=== PATIENT | male | born 1965 | race Caucasian/White ===

== ENCOUNTER 2019-07-28 10:24 | Day surgery (SDC) | payer OTHER ==
[2019-07-27 10:49] VITALS: BMI 33.9
[~2019-07-28 10:24] MED LIST: Bupivacaine HCl 0.5%/Epinephrine 1:200,000/PF 30 ml Vial ONE; Dexamethasone 20 MG/5 ML VIAL ONE; EPHEDRINE 25 MG/5 ML SYRINGE ONE; Lidocaine 1% PF 5 ML VIAL ONE; Ondansetron PF 4 MG/2 ML Vial ONE; PROPOFOL 200 MG/20 ML VIAL ONE
[2019-07-28 11:06] LABS: #Basophils 0.1 thou/uL (0.0-0.2); #Eosinphils 0.2 thou/uL (0.0-0.7); #Lymphocytes 1.8 thou/uL (1.20-3.40); #Monocytes 0.8 thou/uL (0.11-0.59); #Neutrophils 5.2 thou/uL (1.40-6.50); %Eosinophils 2.6 % (0.0-10.0); %Lymphocytes 22.3 % (21.0-51.0); %Monocytes 10.1 % (0.0-10.0); Hemoglobin 15.3 g/dL (14.0-18.0); Mean Corpuscular HGB CONC 32.5 g/dL (32.0-36.0); Mean Corpuscular Hemoglobin 28.2 pg (27.0-31.0); Mean Corpuscular Volume 86.8 fL (78.0-98.0); Mean Platelet Volume 9.2 fL (7.4-10.4); Platelet Count 323 thou/uL (130-400); RBC Distribution Width 12.6 % (11.5-14.5); Red Blood Cell (RBC) Count 5.43 mill/uL (4.70-6.10); White Blood Cell (WBC) Count 8.2 thou/uL (4.8-10.8)
[2019-07-28] MEDS ORDERED: Fentanyl 100 MCG/2 ML VIAL ONE ×2 (12:25→13:36)
[2019-07-28] MEDS ORDERED: Dexamethasone 4 mg/ml Vial ONE (12:25)
[2019-07-28] MEDS ORDERED: Midazolam HCl 2 mg/2 ml Vial ONE (12:25)
[2019-07-28 12:41] LABS: Anion Gap 14 mmol/L (10-20); BUN (Urea Nitrogen) 14 mg/dL (8.4-25.7); Calc. Creatinine Clearance 169 mL/min (70-130); Calcium 9.6 mg/dL (7.8-10.44); Carbon Dioxide 20 mmol/L (22-29); Chloride 107 mmol/L (98-107); Estimated GFR-MDRD Greater than 90; Glucose 95 mg/dL (70-105); Potassium 5.6 mmol/L (3.5-5.1); Sodium 135 mmol/L (136-145)
[2019-07-28] MEDS ORDERED: Lidocaine 1% (PF) 30 ML VIAL ONE (13:30)
--- NOTE | 2019-07-31 12:26 | OP ---
DATE OF PROCEDURE: 07/28/2019 PREOPERATIVE DIAGNOSIS: Right biceps tendon tear. POSTOPERATIVE DIAGNOSIS: Right biceps tendon tear. PROCEDURE PERFORMED: Right distal biceps repair. MANAGER CORE: Denisa Alvarado PA-C BLOOD LOSS: Minimal. SPECIMEN: None. DRAINS: None. COMPLICATION: None. TOURNIQUET TIME: 21 minutes. DESCRIPTION OF PROCEDURE: The patient was taken to the operating room, where general anesthesia was induced. Right arm was prepped and draped in usual sterile fashion. After exsanguination, tourniquet was inflated to 350 mmHg. I made an oblique incision over in the antecubital fossa. Dissection was carried down to the biceps, muscle, and tendon. This was identified. I trimmed off the distal portion of the biceps muscle, prepared using FiberWire suture #2. I then identified the insertion on the radial tubercle and exposed this with periosteal elevator, identified the center, drilled through the radius and then drilled one cortex with an 8 mm reamer. The prepared distal tendon sutures were then placed to Endobutton from [employer]. The button was deployed across the radius. I then pulled the tendon down into the tunnel and sutured back to itself tight, so there was good bony apposition all the way around the tendon. The tourniquet was released. Irrigation was performed. Hemostasis was obtained. Subcutaneous tissue was closed with 2-0 Vicryl. Skin was closed with latoya. Sterile dressing was applied. The patient was placed in a splint. There were no complications. Job ID: [id number]
== END 2019-07-28 17:00 | disposition home or self-care (01) ==
LOC: SDC 10:24
PROVIDERS: ATTEND Orthopaedic Surgery
PROC: 0LM10ZZ Reattachment of Right Shoulder Tendon, Open Approach (ICD-10-PCS; principal; 2019-07-28)
DX: S46.211A Strain of muscle, fascia and tendon of other parts of biceps, right arm, initial encounter (principal); I10 Essential (primary) hypertension; Z87.891 Personal history of nicotine dependence; Z79.899 Other long term (current) drug therapy
CPT/HCPCS: 80048; 85025; 93005; 93010; C1713; J0690; J1100; J2001; J2250; J3010

== ENCOUNTER 2023-02-03 14:47 | Outpatient (CLI) | payer SELFPAY ==
[2023-02-03 16:13] LABS: Hematocrit 45.9 % (38.8-50.0); Hemoglobin 15.1 g/dL (13.5-17.5); Mean Corpuscular HGB CONC 32.9 g/dL (32.0-36.0); Mean Corpuscular Volume 88.1 fl (81.2-95.1); Mean Platelet Volume 11.2 fl (7.4-10.4); Platelet Count 290 10x3/uL (150-450); RBC Distribution Width 13.2 % (11.5-14.5); Red Blood Cell (RBC) Count 5.21 10x6/uL (4.32-5.72)
[2023-02-03 16:18] LABS: Anion Gap 16 mmol/L (10-20); BUN (Urea Nitrogen) 15 mg/dL (8.4-25.7); Calc. Creatinine Clearance 0 mL/min (70-130); Calcium 9.7 mg/dL (7.8-10.44); Carbon Dioxide 21 mmol/L (22-29); Chloride 106 mmol/L (98-107); Estimated GFR 86; Glucose 80 mg/dL (70-105); Sodium 139 mmol/L (136-145)
== END 2023-02-03 14:48 | disposition home or self-care (01) ==
LOC: LABBT 14:47
PROVIDERS: ATTEND Neurological Surgery
DX: Z01.818 Encounter for other preprocedural examination (principal); M43.16 Spondylolisthesis, lumbar region
CPT/HCPCS: 80048; 85027; 93005; 93010

== ENCOUNTER 2023-02-08 08:15 | Day surgery (SDC) | payer OTHER ==
[2023-02-03 15:34] VITALS: BMI 34.5
[2023-02-08] MEDS ORDERED: Sodium Chloride 0.9% 100 ML ONE (11:06)
[2023-02-08] MEDS ORDERED: Midazolam HCl 2 mg/2 ml Vial ONE (11:06)
[2023-02-08] MEDS ORDERED: CEFAZOLIN 2 GM VIAL ONE (11:06)
[2023-02-08] MEDS ORDERED: Glycopyrrolate 0.2 MG/ML 5 ML SYRINGE ONE (11:51)
[2023-02-08] MEDS ORDERED: PROPOFOL 200 MG/20 ML VIAL ONE (11:51)
[2023-02-08] MEDS ORDERED: NEOSTIGMINE 3 MG/3 ML SYR 3 MG/3 ML SYRINGE ONE (11:51)
[2023-02-08] MEDS ORDERED: ePHEDrine Sulfate 50 MG/10 ML VIAL ONE (11:51)
[2023-02-08] MEDS ORDERED: Lidocaine 1% PF 5 ML VIAL ONE (11:51)
[2023-02-08] MEDS ORDERED: Ketorolac Tromethamine 30 MG/ML VIAL ONE (11:51)
[2023-02-08] MEDS ORDERED: Rocuronium Bromide 10 MG/ML (10ML VIAL) ONE (11:51)
[2023-02-08] MEDS ORDERED: Fentanyl 250 MCG/5 ML VIAL ONE (11:52)
[2023-02-08] MEDS ORDERED: Sevoflurane 250 ML INH ANEST BOTTLE ONE (12:14)
[2023-02-08] MEDS ORDERED: Vancomycin 1 GM VIAL ONE (12:58)
[2023-02-08] MEDS ORDERED: fentaNYL 50 mcg/mL 1 mL Vial ONE ×3 (13:46→14:13)
[2023-02-08] MEDS ORDERED: HYDROcodone/Acetaminophen 5/325 mg Tablet ONE (14:43)
[2023-02-08] MEDS ORDERED: Morphine 2 MG/ML VIAL ONE (14:43)
== END 2023-02-08 15:12 | disposition home or self-care (01) ==
LOC: SDC 08:15
PROVIDERS: ATTEND Neurological Surgery
PROC: 0SB40ZZ Excision of Lumbosacral Disc, Open Approach (ICD-10-PCS; principal; 2023-02-08)
DX: M51.17 Intervertebral disc disorders with radiculopathy, lumbosacral region (principal); M43.16 Spondylolisthesis, lumbar region; Z87.891 Personal history of nicotine dependence
CPT/HCPCS: C1713; J1885; J2250; J2272; J2704; J3010; J3370; J3490